=== PATIENT | female | born 2000 | race African-American/Black ===

== ENCOUNTER 2021-11-05 00:37 | Inpatient (IN) | payer MEDICAID ==
[~2021-11-05] VITALS: Ht 167.6 cm; Wt 88.0 kg
[2021-11-05 03:04] LABS: BASOPHILS % 0.3 % (0.0-2.0); HEMATOCRIT. 39.3 % (36.0-48.0); HEMOGLOBIN. 12.9 g/dL (12.0-16.0); LYMPHOCYTES % 13.3 % (20.0-50.0); MEAN CORPUSCULAR HEMOGLOBIN 23.2 pg (28.0-32.0); MEAN PLATELET VOLUME 9.3 fl (7.4-10.4); MONOCYTES % 9.8 % (2.0-8.0); NEUTROPHILS % 76.6 % (40.0-76.0); PLATELET 233 x1000/uL (130-400); RED BLOOD CELL COUNT 5.54 mill/uL (4.2-5.4); RED CELL DISTRIBUTION WIDTH 15.7 % (11.6-14.6)
[2021-11-05 03:11] LABS: CHLORIDE 107 mEq/L (98-107)
[2021-11-05] MEDS ORDERED: POTASSIUM CHLORIDE 20MEQ TABLET SR PO SCH (03:30)
[2021-11-05 03:35] LABS: B-HCG QUANTITATIVE 70171 mIU/mL (<3)
[2021-11-05] MEDS ORDERED: ONDANSETRON HCL 4MG/2ML INJ IV SCH (03:45)
[2021-11-05 05:05] LABS: CLARITY URINE TURBID (CLEAR); COLOR URINE ORANGE (YELLOW); KETONES URINE 4+ (NEGATIVE); LEUKOCYTE ESTERASE URINE NEGATIVE (NEGATIVE); NITRITE URINE NEGATIVE (NEGATIVE); OCCULT BLOOD URINE NEGATIVE (NEGATIVE); PROTEIN URINE 2+ (NEGATIVE); SPECIFIC GRAVITY URINE 1.039 (1.005-1.030)
[2021-11-05 05:22] LABS: *BARBITURATES SCREEN URINE NEGATIVE (NEGATIVE)
[2021-11-05 05:23] LABS: *AMPHETAMINES SCREEN URINE NEGATIVE (NEGATIVE); *BENZODIAZEPINES SCREEN URINE NEGATIVE (NEGATIVE); *COCAINE SCREEN URINE NEGATIVE (NEGATIVE); METHADONE URINE SCREEN NEGATIVE (NEGATIVE); OPIATES URINE SCREEN NEGATIVE (NEGATIVE); PHENCYCLIDINE URINE SCREEN NEGATIVE (NEGATIVE)
[2021-11-05 05:40] LABS: CANNABINOID URINE SCREEN PRESUMTIVE POSITIVE (NEGATIVE)
[2021-11-05] MEDS ORDERED: METOCLOPRAMIDE HCL 10MG/2ML VIAL IV ONE ×2 (07:00→12:45)
[2021-11-05] MEDS ORDERED: FAMOTIDINE 20MG/2ML VIAL IV ONE (07:00)
[2021-11-05] MEDS ORDERED: MAGNESIUM/ALUMINUM HYDROXIDE/SIMETHICONE 30ML UDC PO ONE (07:00)
[2021-11-05] MEDS ORDERED: PYRIDOXINE HCL 50MG TABLET PO ONE (07:00)
[2021-11-05] MEDS ORDERED: SODIUM CHLORIDE 0.9% 1,000 ML IV ONE (12:30)
[2021-11-05] MEDS ORDERED: ONDANSETRON HCL 4MG/2ML INJ IV PRN (14:00)
[2021-11-05] MEDS ORDERED: ACETAMINOPHEN 325MG TABLET PO PRN ×2 (14:00→20:00)
[2021-11-05] MEDS: SODIUM CHLORIDE 0.9% 1,000 ML IV SCH (16:12)
[2021-11-05 20:00] VITALS: BP 132/72
[2021-11-05] MEDS: ONDANSETRON HCL 4MG/2ML INJ IV PRN (20:00)
[2021-11-06] VITALS: BP 113/59
[2021-11-06] MEDS: SODIUM CHLORIDE 0.9% 1,000 ML IV SCH ×2 (00:42→16:40)
[2021-11-06 04:00] VITALS: BP 105/57
[2021-11-06] MEDS: ONDANSETRON HCL 4MG/2ML INJ IV PRN ×3 (04:09→18:26)
[2021-11-06 08:00] VITALS: BP 120/68
[2021-11-06] MEDS: METOCLOPRAMIDE HCL 10MG/2ML VIAL IV PRN ×3 (08:32→22:55)
[2021-11-06 12:00] VITALS: BP 130/82
[2021-11-06 16:00] VITALS: BP 144/79
[2021-11-06] MEDS ORDERED: MAGNESIUM/ALUMINUM HYDROXIDE/SIMETHICONE 30ML UDC PO PRN (19:00)
[2021-11-06 20:00] VITALS: BP 119/72
[2021-11-07] VITALS: BP 109/54
[2021-11-07 04:00] VITALS: BP 112/56
[2021-11-07] MEDS: SODIUM CHLORIDE 0.9% 1,000 ML IV SCH (04:01)
[2021-11-07] MEDS: METOCLOPRAMIDE HCL 10MG/2ML VIAL IV PRN ×2 (04:01→10:17)
[2021-11-07] MEDS: ONDANSETRON HCL 4MG/2ML INJ IV PRN ×2 (06:35→12:51)
[2021-11-07 07:42] LABS: PHOSPHORUS 2.6 mg/dL (2.5-4.9)
[2021-11-07 08:00] VITALS: BP 136/78
[2021-11-07 12:00] VITALS: BP 122/79
[2021-11-07 16:00] VITALS: BP 146/78
[2021-11-07] MEDS ORDERED: ONDA4TAB11 PO (16:45)
[2021-11-07] MEDS ORDERED: METO5TAB86 MT (16:45)
[2021-11-07 16:58] VITALS: BP 147/79
== END 2021-11-07 18:00 | disposition home or self-care (01) | DRG 566 ==
LOC: ER 00:37 → 7EST 12:46 → ER 17:18
PROVIDERS: ADMIT Internal Medicine; ATTEND Internal Medicine
DX: O21.1 Hyperemesis gravidarum with metabolic disturbance (principal); O99.321 Drug use complicating pregnancy, first trimester; R07.9 Chest pain, unspecified; O99.331 Smoking (tobacco) complicating pregnancy, first trimester; O99.511 Diseases of the respiratory system complicating pregnancy, first trimester; O99.341 Other mental disorders complicating pregnancy, first trimester; F12.90 Cannabis use, unspecified, uncomplicated; F41.9 Anxiety disorder, unspecified; O99.891 Other specified diseases and conditions complicating pregnancy; F17.200 Nicotine dependence, unspecified, uncomplicated; J45.909 Unspecified asthma, uncomplicated; Z3A.01 Less than 8 weeks gestation of pregnancy; Z71.6 Tobacco abuse counseling
CPT/HCPCS: 36415; 76801; 78580; 80053; 80305; 81003; 83735; 84100; 84132; 84702; 85025; 85379; 93005; 93970; 99285; J2405; J2765; J3490; J7030